=== PATIENT | male | born 1980 | race Caucasian/White ===

== ENCOUNTER 2019-06-25 13:23 | Emergency (ER) | payer MEDICAID, SELFPAY ==
[2019-06-25 13:24] VITALS: BP 170/100; PULSE 149; RESP 16; TEMP 36.4; O2SAT 99; BMI 42.0
[2019-06-25 14:11] VITALS: BP 172/91
--- NOTE | 2019-06-25 14:18 | ED.VIS.UPPEX ---
History of Present Illness Chief Complaint: Laceration Informant: Patient Occurred: Today Mechanism/Context: Incised Onset: Today Context: Sudden Onset Timing: Continuous Quality of Pain: Throbbing Location: left palm Current Severity: Moderate Maximum Severity: Severe Worsened by: movement Relieved by: rest Associated Symptoms: Negative for: Parasthesia, Weakness, Loss of Funtion Narrative: 38-year-old male [id number] presents with a laceration to the left hand on his palm. He was using a brand-new knife to cut open the packaging from a new fishing lavinia when he accidentally lacerated his palm. He denies any other injuries. Bleeding was stopped with manual pressure. He does not remember when his last tetanus was. Denies numbness tingling or weakness. Tetanus Immunization: Unknown Prior similar symptoms: No Recent Illness/Hospitalization: No Past Medical History - Allergies and Home Meds Allergies/Adverse Reactions: Allergies No Known Allergies Allergy (Verified 06/25/19 13:25) Primary Care Physician: Sage Sarmiento MD [Primary Care Provider] - Prior records reviewed: Yes Past Medical History: None Surgical History: no surgical history Lives: With Family Smoking Status: Never smoker Alcohol: None Review of Systems All systems negative except as indicated General: Denies: Chills, Fever, Malaise Eyes: Denies: Visual changes - bilaterally, Blurred Vision - bilaterally, Diplopia ENT: Denies: Rhinorrhea, Sore throat Cardiovascular: Denies: Chest pain, Palpitations, Heart racing Respiratory: Denies: Dyspnea, Cough, Sputum, Dyspnea on exertion, Orthopnea Gastrointestinal: Denies: Abdominal pain, Nausea, Vomiting, Diarrhea Genitourinary: Denies: Dysuria, Hematuria, Frequency Musculoskeletal: Reports: Extremity Pain. Denies: Myalgias, Arthralgias, Neck pain, Back pain Skin: Reports: Abrasions. Denies: Rash, Abscess, Wounds Neurological: Denies: Weakness, Parasthesia, Numbness Physical Exam Vital Signs/Narrative: Vital Signs Temp Pulse Resp BP Pulse Ox 06/25/19 14:11 172/91 H 06/25/19 13:24 97.6 F L 149 H 16 170/100 H 99 Inital Vital Signs reviewed: Yes Left Hand: - - 4.5 cm laceration over the left thenar eminence. It is linear. It is a fairly deep laceration. He has normal active range of motion in all directions of his thumb. Capillary refill and sensation are normal. He has normal range of motion actively of his wrist. His radial pulse is normal. General: Well nourished, Well developed Head: Normocephalic, Atraumatic Eyes: Perrl ENT: No Trauma, Moist Mucous Membranes Neck: Nontender, Full ROM Cardiovascular: Regular rate, Regular rhythm, No murmurs Respiratory: No distress, CTA bilaterally, Chest nontender Abdomen: Soft, Nontender, Nondistended, Normal bowel sounds, No masses Skin: Normal color, No rash, Trauma Neurological: Alert, Oriented x3 Psychological: Normal affect, Normal Mood Diagnostic/Tx/Re-eval - Medical Decision Making Tetanus updated. Under sterile conditions with chlorhexidine prep lidocaine was used locally for anesthesia approximately 7 cc total. Wound was thoroughly irrigated via pressure wash syringe a total of 90 cc of sterile saline. It was then thoroughly explored. No foreign bodies were seen. There is no arterial bleeding. No evidence of tendon or ligament injury. It was then cleansed with chlorhexidine. It was sutured. 3 deep Monocryl #4-0 sutures were used for approximation followed by 7 simple interrupted sutures Ethilon #3?0. Patient tolerated well. Bacitracin and a dressing were applied. Discussed with patient proper wound care and he was given signs of infection to monitor for and advised to follow-up in 7 to 10 days with his primary for removal of sutures. Procedures - Lacerations No standard instances Length: 4.5 cm Depth: Skin Shape: Linear Prep: Sterile Conditions, Chlorhexadine Laceration Repair: Lidocaine, Local, Sutures, Wound explored Irrigated (ml): 90 Number of Sutures/Tommie: 10 Suture Information: Vicryl, Ethilon, 4-0 Comment: complex laceration requiring deep sutures ED Disposition - Plan for ED Patient: Disposition: Home or Assisted Living Diagnosis: laceration of thenar eminence left hand Instructions: ED Laceration Ext Sutr Stap Tape Referrals: Sage Sarmiento MD [Primary Care Provider] -
[2019-06-25] MEDS: Diphth,Pertuss(Acell),Tet Vac 0.5 ML Vial IM (14:51)
== END 2019-06-25 14:56 | disposition home or self-care (01) ==
PROVIDERS: Emergency Provider Physician Assistant Medical; PCP Family Medicine
DX: S61.412A Laceration without foreign body of left hand, initial encounter (principal); Z23 Encounter for immunization; W26.0XXA Contact with knife, initial encounter; Y93.89 Activity, other specified; Y92.89 Other specified places as the place of occurrence of the external cause; Y99.8 Other external cause status
CPT/HCPCS: 12002; 90471; 90715; 99282

== ENCOUNTER 2021-01-25 22:04 | Emergency (ER) | payer MEDICAID, SELFPAY ==
[2021-01-25 22:04] VITALS: BP 160/87; PULSE 133; RESP 18; TEMP 36.5; O2SAT 99; BMI 37.8
[2021-01-25 22:17] LABS: Bacteria 0 SEEN /hpf (None Seen); Mucous, Urine 0 SEEN /hpf (<or=2+); Red Blood Cells-Urine 0 SEEN /hpf (0-5); Squamous Epithelial Cells - UA 0 SEEN /hpf (0-5); White Blood Cells 0 SEEN /hpf (0-5)
[2021-01-25 22:20] LABS: Color, Urine Yellow (Yellow); Glucose, Dipstick Normal (Normal); Ketone-Dipstick Negative (Negative); Leukocyte Esterase-Dipstick Negative /ul (Negative); Nitrite-Dipstick Negative (Negative); Occult Blood-Urine 10 /ul (Negative); Protein-Dipstick Negative (Negative); Urine Bilirubin Dipstick Negative (Negative); Urine Clarity Clear (Clear); Urine Urobilinogen Normal (Normal)
--- NOTE | 2021-01-25 23:05 | EDS_ITS ---
HPI History of Present Illness Chief Complaint: Complaint Informant: patient Narrative Narrative: Patient sent in here after a phone visit with his PCP this evening for concerns for erectile dysfunction. States unable to get an erection, was able to yesterday. There is no trauma. No urine symptoms. Yesterday has slight flank pain that would come and go. History of kidney stones. Denies nausea or vomiting. Denies fevers. Denies dysuria. Denies any penile discharge. Reports he does have whitecoat syndrome. Reports discussion with his physician with color changes at his penile tip and was concerned and sent in for evaluation. [facility] Home Medications NK 06/25/19 [History Last Taken Unknown] Allergy/AdvReac Type Severity Reaction Status Date / Time No Known Allergies Allergy Verified 01/25/21 22:43 Social History Smoking Status: Never smoker ROS ROS ED Constitutional Constitutional ED: Denies chills, fever(s) or sweats Eyes Eyes: Denies change in vision ENT ENT ED: Denies dysphagia or sore throat Cardiovascular Cardiovascular: Denies chest pain, leg edema, palpitations or racing heartbeat Respiratory/Chest Respiratory/Chest: Denies cough, dyspnea or dyspnea on exertion Gastrointestinal Gastrointestinal: Denies abdominal pain, diarrhea, nausea or vomiting Genitourinary Genitourinary ED: Reports other Details: Erectile dysfunction ; Denies dysuria, hematuria or urinary frequency Musculoskeletal Musculoskeletal: Reports back pain; Denies extremity pain or neck pain Integumentary Denies rash or wounds Neurologic Neurologic: Denies headache(s), paresthesias or weakness EXAM Physical Exam Const Vital Signs: 01/25/21 22:04 01/25/21 23:16 Temperature 97.7 F L Temperature Source Temporal Pulse Rate 133 H 98 Respiratory Rate 18 18 Blood Pressure 160/87 H 157/60 H Blood Pressure Mean 111 Pulse Ox 99 Oxygen Delivery Method Room Air Positive well nourished and well developed Constitutional Narrative: Mild anxious. General Appearance ED: well developed and NAD HEENT Reports moist mucous membranes normocephalic and atraumatic Eyes PERRL, EOMs intact bilaterally and conjunctivae normal General Eye ED: Yes normal appearance of both eyes Neck no lymphadenopathy and supple General: Negative for tenderness Chest Wall Chest: Negative for tenderness Resp normal respiratory effort and normal air movement Effort and Inspection: symmetric chest movement; Negative for respiratory distress Cardio regular rhythm and no murmurs Rate: tachycardic Peripheral Pulses: pulses 2+ throughout GI normal to inspection, nondistended, normoactive bowel sounds and non-tender Palpation: Negative for guarding or rebound tenderness present Narrative: No scrotal swelling or herniations. No penile lesion. No ulceration or discharge. Normal color of the penile shaft, nontender. No ecchymosis. Mild erection was noted. Back/Spine no CVA tenderness and no thoracic nor lumbar tenderness Extremity normal to inspection General Extremety ED: Negative for edema or tenderness General Extremity: Negative for edema Neuro oriented x3 and no sensory deficits noted Sensorium / Orientation: awake and alert Skin no rashes or lesions noted and no wounds MDM MDM MDM Narrative Medical decision making narrative: Patient tachycardic, however has whitecoat syndrome. Not in any acute distress. Urine obtained from triage noticed mild hematuria. There is no infection. Discussed with patient can image if concerns for kidney stones for which he has had in the past, he like to hold off at this time. Issues would be for symptom control for which she will use Tylenol and Motrin as needed. There are no signs of infection of the penile shaft, normal color. There is mild erection noted. He is reassured. He will monitor symptoms. Return precautions discussed. He also states he has a PCP appointment tomorrow. Prior to discharge heart rate proved to 98. Reported noted elevated blood pressure in the ED. He discussed that he potentially would be willing to get on medications with him not being 40 years old. Discussed this can be evaluated his PCP if persistent elevation for medication as an outpatient. Lab Data Attestation: I reviewed the patient's lab results. Labs: Laboratory Results - last 24 hr 01/25/21 22:12 Urine Color Yellow Urine Clarity Clear Urine pH 6.0 Ur Specific [place] 1.010 Urine Protein Negative Urine Glucose (UA) Normal Urine Ketones Negative Urine Occult Blood 10 H Urine Nitrite Negative Urine Bilirubin Negative Urine Urobilinogen Normal Ur Leukocyte Esterase Negative Urine RBC 0 SEEN Urine WBC 0 SEEN Ur Squamous Epith Cells 0 SEEN Urine Bacteria 0 SEEN Urine Mucus 0 SEEN Discharge Plan Triage Chief Complaint: Complaint ED Provider: Phi Chin Dx/Rx/DC Orders Clinical Impression: Erectile dysfunction, Hematuria Instructions: Hematuria: Possible Causes, Understanding Erectile Dysfunction Prescriptions: No Action NK RF: 0 Primary Care Provider: Sage Sarmiento Referrals: Sage Sarmiento MD [Primary Care Provider] - 1 Day Disposition Disposition: Home, Self Care Discharge Date/Time: 01/25/21 23:16
[2021-01-25 23:16] VITALS: BP 157/60; PULSE 98; RESP 18
== END 2021-01-25 23:16 | disposition home or self-care (01) ==
LOC: ED 23:01
PROVIDERS: Emergency Provider Emergency Medicine; PCP Family Medicine
DX: N52.9 Male erectile dysfunction, unspecified (principal); R31.9 Hematuria, unspecified
CPT/HCPCS: 81001; 99282